=== PATIENT | female | born 1985 | race Caucasian/White ===

== ENCOUNTER → 2019-05-16 | Outpatient (CLI) | payer BC | END | disposition home or self-care (01) | LOC: RADUSWWP 12:41 | PROVIDERS: ATTEND Family Medicine | DX: R09.89 Other specified symptoms and signs involving the circulatory and respiratory systems (principal) | CPT/HCPCS: 93922 ==

== ENCOUNTER → 2019-11-09 | Outpatient (CLI) | payer BC ==
--- NOTE | 2019-11-09 13:52 | MM ---
Reason for exam: screening (asymptomatic). Baseline mammogram. History: Patient is nulliparous. Family history of breast cancer in paternal aunt. Physical Findings: Nurse did not find any significant physical abnormalities on exam. MG 3D Screening Mammo W/Cad Bilateral CC and MLO view(s) were taken. There are scattered fibroglandular densities. 7mm left upper outer quadrant nodularity has a somewhat reniform shape on 3D images. An intramammary lymph node is suspected. 6 month follow up mammogram recommended. Otherwise, no discrete abnormality. These results were verbally communicated with the patient and result sheet given to the patient on 11/09/19. ASSESSMENT: Probably benign, BI-RAD 3 RECOMMENDATION: Follow-up diagnostic mammogram of the left breast in 6 months.
== END | disposition home or self-care (01) ==
LOC: RADMAMWWP 12:30
PROVIDERS: ATTEND Obstetrics & Gynecology
DX: Z12.31 Encounter for screening mammogram for malignant neoplasm of breast (principal)
CPT/HCPCS: 77063; 77067

== ENCOUNTER → 2020-06-10 | Outpatient (CLI) | payer BC ==
--- NOTE | 2020-06-16 14:53 | MM ---
Reason for exam: follow-up at short interval from prior study. Last mammogram was performed 7 months ago. History: Patient is nulliparous. Family history of breast cancer in paternal aunt at age 40. Took hormonal contraceptives beginning at age 16. Physical Findings: Nurse did not find any significant physical abnormalities on exam. MG 3D Diag Mammo W/Cad LT CC and MLO view(s) were taken of the left breast. Prior study comparison: November 09, 2019, bilateral MG 3d screening mammo w/cad. There are scattered fibroglandular densities. Small upper outer quadrant left breast nodule 5mm. Ultrasound recommended. These results were verbally communicated with the patient and result sheet given to the patient on 06/10/20. ASSESSMENT: Incomplete: need additional imaging evaluation, BI-RAD 0 RECOMMENDATION: Ultrasound of the left breast.
--- NOTE | 2020-06-16 14:54 | USB ---
Reason for exam: additional evaluation requested from abnormal screening. History: Patient is nulliparous. Family history of breast cancer in paternal aunt at age 40. Took hormonal contraceptives beginning at age 16. US Breast Limited LT Left limited breast ultrasound including focal area of concern, retroareolar and axilla demonstrates no cystic or solid lesion seen. These results were verbally communicated with the patient and result sheet given to the patient on 06/10/20. ASSESSMENT: Probably benign, BI-RAD 3 RECOMMENDATION: Follow-up diagnostic mammogram of both breasts in 6 months. Back on schedule for November 2020.
== END | disposition home or self-care (01) ==
LOC: RADMAMWWP 14:14
PROVIDERS: ATTEND Obstetrics & Gynecology
DX: R92.8 Other abnormal and inconclusive findings on diagnostic imaging of breast (principal)
CPT/HCPCS: 77061; 77065

== ENCOUNTER → 2021-04-16 | Outpatient (CLI) | payer BC ==
--- NOTE | 2021-04-16 12:18 | MM ---
Reason for exam: additional evaluation requested from prior study. Last mammogram was performed 10 months ago. History: Patient is nulliparous. Family history of breast cancer in paternal aunt at age 40. Took hormonal contraceptives beginning at age 16. Physical Findings: Nurse did not find any significant physical abnormalities on exam. MG 3D Diag Mammo W/Cad KEYSHA Bilateral CC and MLO view(s) were taken. Spot compression CC view(s) were taken of the right breast. Prior study comparison: June 10, 2020, left breast MG 3d diag mammo w/cad LT. November 09, 2019, bilateral MG 3d screening mammo w/cad. There are scattered fibroglandular densities. Finding: There is an intermediate concern, suspicious high density, spiculated oval mass in the subareolar position of the right breast. Disperses on compression. New finding since June 10, 2020 and November 09, 2019. These results were verbally communicated with the patient and result sheet given to the patient on 04/16/21. ASSESSMENT: Incomplete: need additional imaging evaluation, BI-RAD 0 RECOMMENDATION: Ultrasound of the right breast.
--- NOTE | 2021-04-16 12:19 | USB ---
Reason for exam: additional evaluation requested from abnormal screening. History: Patient is nulliparous. Family history of breast cancer in paternal aunt at age 40. Took hormonal contraceptives beginning at age 16. US Breast Limited RT Right limited breast ultrasound including focal area of concern, retroareolar and axilla demonstrates no cystic or solid lesion seen. These results were verbally communicated with the patient and result sheet given to the patient on 04/16/21. ASSESSMENT: Probably benign, BI-RAD 3 RECOMMENDATION: Follow-up diagnostic mammogram of the right breast in 6 months.
== END | disposition home or self-care (01) ==
LOC: RADMAMWWP 10:41
PROVIDERS: ATTEND Obstetrics & Gynecology
DX: N64.89 Other specified disorders of breast (principal); Z80.3 Family history of malignant neoplasm of breast
CPT/HCPCS: 77062; 77066

== ENCOUNTER 2021-12-30 07:32 | Observation (INO) | payer BC ==
[2021-12-30 08:12] LABS: Basophils # (A) 0.1 k/uL (0-0.2); Basophils % (A) 0 %; Eosinophils % (A) 0 %; HCT 42.5 % (34.0-46.0); HGB 14.2 gm/dL (11.4-16.0); Lymphocytes # (A) 1.5 k/uL (1.0-4.8); Lymphocytes % (A) 9 %; MCH 30.7 pg (25.0-35.0); MCHC 33.4 g/dL (31.0-37.0); Mean Platelet Volume 7.1; Monocytes # (A) 0.5 k/uL (0-1.0); Monocytes % (A) 3 %; Neutrophils # (A) 15.2 k/uL (1.3-7.7); Neutrophils % (A) 87 %; Platelet Count 285 k/uL (150-450); RBC 4.62 m/uL (3.80-5.40); RDW 12.6 % (11.5-15.5); WBC 17.4 k/uL (3.8-10.6)
[2021-12-30 08:15] LABS: ALT 25 U/L (4-34); AST 26 U/L (14-36); African American GFR (CKD) >90 (>60 ml/min/1.73 sqM); Albumin 4.2 g/dL (3.5-5.0); Alkaline Phosphatase 83 U/L (38-126); Amylase 57 U/L (30-110); Anion Gap 6 mmol/L; Blood Urea Nitrogen 15 mg/dL (7-17); Calcium 9.5 mg/dL (8.4-10.2); Carbon Dioxide 24 mmol/L (22-30); Chloride 104 mmol/L (98-107); Glucose 133 mg/dL (74-99); Lipase 85 U/L (23-300); Non-African American GFR(CKD) >90 (>60 ml/min/1.73 sqM); Potassium 4.3 mmol/L (3.5-5.1); Sodium 134 mmol/L (137-145); Total Bilirubin 0.6 mg/dL (0.2-1.3); Total Protein 7.1 g/dL (6.3-8.2)
[2021-12-30 08:38] LABS: Appearance,Urine Clear (Clear); Bilirubin,Urine Negative (Negative); Blood,Urine Small (Negative); Color,Urine Yellow; Glucose,Urine (UA) Negative (Negative); Ketones,Urine Negative (Negative); Leukocyte Esterase,Urine Negative (Negative); Mucus,Urine Rare /hpf; Nitrite,Urine Negative (Negative); Protein,Urine Negative (Negative); RBC,Urine 3 /hpf (0-5); Specific Gravity,Urine 1.021 (1.001-1.035); Squamous Epithelial Cell,Urine 1 /hpf (0-4); Urobilinogen,Urine <2.0 mg/dL (<2.0); WBC,Urine 1 /hpf (0-5)
[2021-12-30] MEDS ORDERED: ONDANSETRON 4 MG/2 ML VIAL IVP STA (09:04)
[2021-12-30] MEDS ORDERED: SODIUM CHLORIDE 0.9% 1,000 ML IV STA ×2 (09:04→10:10)
[2021-12-30] MEDS ORDERED: MORPHINE SULFATE 4 MG/ML SYRINGE IVP STA (09:04)
[2021-12-30] MEDS ORDERED: diphenhydrAMINE 50 MG/ML 1 ML VIAL IVP STA (09:04)
--- NOTE | 2021-12-30 09:08 | XR ---
EXAMINATION TYPE: XR KUB DATE OF EXAM: 12/30/2021 COMPARISON: None INDICATION: Abdomen pain right lower quadrant pain TECHNIQUE: Single view abdomen FINDINGS: There is a normal bowel gas pattern. Small amount of fecal debris is in the region of the cecum. No m ass effect is evident. No suspicious air-fluid levels or differential air-fluid levels are present. N o free air is evident. Psoas margins are normal. No organomegaly is present. IMPRESSION: 1. Unremarkable Abdomen
--- NOTE | 2021-12-30 10:21 | CT ---
EXAMINATION TYPE: CT abdomen pelvis w con DATE OF EXAM: 12/30/2021 COMPARISON: No previous CT scan is available for comparison HISTORY: Right lower quadrant pain. CT DLP: 1667.3 mGycm Automated exposure control for dose reduction was used. TECHNIQUE: Helical acquisition of images was performed from the lung bases through the pelvis. CONTRAST: Performed without Oral Contrast and with IV Contrast, patient injected with 100 mL of Isovue 300. FINDINGS: Dilated appendix measuring up to 13 mm with hyperenhancing wall, surrounding fat stranding, minimal r eactive fluid and adjacent peritoneal reflection thickening, consistent with acute appendicitis. No d efinite abscess formation or signs of perforation. Unremarkable nondistended stomach, duodenum and sm all bowel. Questionable scattered uncomplicated colonic diverticulosis. Gross unremarkable remainder of the colon. Unremarkable liver, gallbladder, spleen, pancreas, adrenals, kidneys and abdominal aorta. The urinary bladder is not distended. No gross uterine mass. Bilateral ovarian cysts/follicles measuring up to 4 .2 cm on the right side and 2.8 cm and the left side, possibly representing follicles/follicular cyst . This is suboptimally assessed by this CT scan. Recommend follow up by ultrasound in 6 weeks. No suspicious lymphadenopathy or sizable ascites. Minimal fluid is seen in the pelvis with suspected pelvic adhesions. Endometriosis cannot be excluded. Unremarkable lung bases. 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 No aggressive bone lesion. IMPRESSION: 1. Acute appendicitis without signs of perforation or abscess formation. Recommend urgent surgical co nsultation. 2. Right ovarian cyst measuring up to 4.2 cm, possibly representing a follicular cyst. It is suboptim ally assessed, recommend further ultrasound assessment in 6 weeks. Other incidental findings as descr ibed above. Findings were discussed with the referring ER physician at 10:07 AM on 12/30/2021.
[2021-12-30] MEDS ORDERED: MORPHINE SULFATE 4 MG/ML SYRINGE IV PRN (10:28)
[2021-12-30] MEDS ORDERED: NALOXONE 0.4 MG/ML 1 ML VIAL IV PRN (10:28)
[2021-12-30] MEDS ORDERED: ONDANSETRON 4 MG/2 ML VIAL IVP PRN (10:28)
--- NOTE | 2021-12-30 10:31 | ED ---
General Adult HPI - General Chief complaint: Abdominal Pain Stated complaint: right side pain Time Seen by Provider: 12/30/21 08:30 Source: patient, RN notes reviewed, old records reviewed Mode of arrival: ambulatory Limitations: no limitations - History of Present Illness Initial comments: Patient is a 36-year-old female with past medical history remarkable for nothing who presents emergency Department complaining of acute onset of right-sided abdominal pain that started at 2 AM this morning. She scabs the pain is sharp and achy that does somewhat radiate around her right flank. It is tender to touch. Endorses nausea, but no episodes of emesis. Denies dysuria or hematuria. Does endorse episodes of diarrhea this morning as well. Presents e mergency Department because the pain was so severe. Denies any history of abdominal surgeries. States the pain has been constant and has not been coming and going. States she is currently on her period and does not believe she is . Patient was evaluated when she was placed in a room. Work up was initially started in triage by nursing. - Related Data Home Medications Medication Instructions Recorded Confirmed Gabapentin [Neurontin] 300 mg PO DAILY 12/30/21 12/30/21 SUMAtriptan SUCCINATE [Imitrex] 100 mg PO DAILY PRN 12/30/21 12/30/21 Venlafaxine HCl [Effexor XR] 75 mg PO DAILY 12/30/21 12/30/21 Allergies Allergy/AdvReac Type Severity Reaction Status Date / Time No Known Allergies Allergy Verified 12/30/21 10:26 Review of Systems ROS Statement: Those systems with pertinent positive or pertinent negative responses have been documented in the HPI. Review of Systems: CONST: Denies fever EYES: Denies blurry vision ENT: Denies nasal congestion C/V: Denies Chest pain RESP: Denies shortness of breath GI: Endorses abdominal pain : Denies dysuria SKIN: Denies rash. MSK: Denies joint pain. NEURO: Denies headache ROS Other: All systems not noted in ROS Statement are negative. Past Medical History Past Medical History: No Reported History History of Any Multi-Drug Resistant Organisms: None Reported Past Surgical History: No Surgical Hx Reported Past Psychological History: No Psychological Hx Reported Smoking Status: Never smoker Past Alcohol Use History: Rare Past Drug Use History: None Reported General Exam - General Exam Comments Initial Comments: General: Appears in mild to moderate distress secondary to abdominal pain. HEAD: Normal with no signs of head trauma. EYES: PERRLA, EOMI, conjunctiva normal, no discharge. ENT: Hearing grossly intact, normal oropharynx. RESPIRATORY: Clear breath sounds bilaterally. No wheezes, rales, or rhonchi. C/V: Regular rate and rhythm. S1 and S2 auscultated, no edema, peripheral pulses 2+ and intact throughout ABD: Abdomen is soft, nondistended. Patient is tender to palpation in the right lower quadrant. No guarding. No rebound tenderness. No peritoneal signs. No CVA tenderness to percussion. McBurney's point positive. Rovsing sign negative. EXT: Normal range of motion, no obvious deformity SKIN: No rashes or lesions observed on exposed skin. NEURO: Alert and oriented 4. Limitations: no limitations Course Vital Signs 12/30/21 07:33 Temperature 98.0 F Pulse Rate 94 Respiratory 18 Rate Blood Pressure 111/53 O2 Sat by Pulse 98 Oximetry Medical Decision Making - Medical Decision Making Based on the patient's presentation and physical exam, it appears that the patient is having acute onset of abdominal pain. I'm concerned for acute intra- abdominal process she cannot rule out kidney stones versus appendicitis. I did discuss this with the patient. Abdominal laboratory studies were already drawn in triage were remarkable for a negative test. Patient does have a leukocytosis of 17.4. Urinalysis is positive for a small amount of blood but otherwise unremarkable. Abdominal x-ray was ordered by triage and also revealed no acute intra-abdominal process. I discussed with her my concern for possible appendicitis and I would like to obtain a CT abdomen and pelvis with contrast. She was in agreement with this plan. Patient will be symptomatically treated with 1 L fluid bolus as well as a GI cocktail consisting of IV morphine, Benadryl, Zofran. Patient was in agreement with this plan. CT on pelvis revealed an acute uncomplicated appendicitis. There is also a right-sided ovarian cyst with recommended follow-up ultrasound. I did discuss the patient with findings on his CT imaging. Abdomen like to admit her to the hospital for potential surgery. Patient was started on cefoxitin. Blood cultures were obtained and sent. Patient was in agreement this plan. I contacted surgery on-call, Dr. Oliva who is in agreement this plan. Patient will be made nothing by mouth. Patient was therefore admitted in serious condition. - Lab Data Result diagrams: 12/30/21 07:48 12/30/21 07:48 Lab Results 12/30/21 12/30/21 12/30/21 Range/Units 07:48 07:48 07:48 WBC 17.4 H (3.8-10.6) k/uL RBC 4.62 (3.80-5.40) m/uL Hgb 14.2 (11.4-16.0) gm/dL Hct 42.5 (34.0-46.0) % MCV 92.0 (80.0-100.0) fL MCH 30.7 (25.0-35.0) pg MCHC 33.4 (31.0-37.0) g/dL RDW 12.6 (11.5-15.5) % Plt Count 285 (150-450) k/uL MPV 7.1 Neutrophils % 87 % Lymphocytes % 9 % Monocytes % 3 % Eosinophils % 0 % Basophils % 0 % Neutrophils # 15.2 H (1.3-7.7) k/uL Lymphocytes # 1.5 (1.0-4.8) k/uL Monocytes # 0.5 (0-1.0) k/uL Eosinophils # 0.0 (0-0.7) k/uL Basophils # 0.1 (0-0.2) k/uL Sodium 134 L (137-145) mmol/L Potassium 4.3 (3.5-5.1) mmol/L Chloride 104 (98-107) mmol/L Carbon Dioxide 24 (22-30) mmol/L Anion Gap 6 mmol/L BUN 15 (7-17) mg/dL Creatinine 0.68 (0.52-1.04) mg/dL Est GFR (CKD-EPI)AfAm >90 (>60 ml/min/1.73 sqM) Est GFR (CKD-EPI)NonAf >90 (>60 ml/min/1.73 sqM) Glucose 133 H (74-99) mg/dL Calcium 9.5 (8.4-10.2) mg/dL Total Bilirubin 0.6 (0.2-1.3) mg/dL AST 26 (14-36) U/L ALT 25 (4-34) U/L Alkaline Phosphatase 83 (38-126) U/L Total Protein 7.1 (6.3-8.2) g/dL Albumin 4.2 (3.5-5.0) g/dL Amylase 57 (30-110) U/L Lipase 85 (23-300) U/L HCG, Qual Not Detected Urine Color Urine Appearance (Clear) Urine pH (5.0-8.0) Ur Specific [place] (1.001-1.035) Urine Protein (Negative) Urine Glucose (UA) (Negative) Urine Ketones (Negative) Urine Blood (Negative) Urine Nitrite (Negative) Urine Bilirubin (Negative) Urine Urobilinogen (<2.0) mg/dL Ur Leukocyte Esterase (Negative) Urine RBC (0-5) /hpf Urine WBC (0-5) /hpf Ur Squamous Epith Cells (0-4) /hpf Urine Mucus (None) /hpf 12/30/21 Range/Units 08:22 WBC (3.8-10.6) k/uL RBC (3.80-5.40) m/uL Hgb (11.4-16.0) gm/dL Hct (34.0-46.0) % MCV (80.0-100.0) fL MCH (25.0-35.0) pg MCHC (31.0-37.0) g/dL RDW (11.5-15.5) % Plt Count (150-450) k/uL MPV Neutrophils % % Lymphocytes % % Monocytes % % Eosinophils % % Basophils % % Neutrophils # (1.3-7.7) k/uL Lymphocytes # (1.0-4.8) k/uL Monocytes # (0-1.0) k/uL Eosinophils # (0-0.7) k/uL Basophils # (0-0.2) k/uL Sodium (137-145) mmol/L Potassium (3.5-5.1) mmol/L Chloride (98-107) mmol/L Carbon Dioxide (22-30) mmol/L Anion Gap mmol/L BUN (7-17) mg/dL Creatinine (0.52-1.04) mg/dL Est GFR (CKD-EPI)AfAm (>60 ml/min/1.73 sqM) Est GFR (CKD-EPI)NonAf (>60 ml/min/1.73 sqM) Glucose (74-99) mg/dL Calcium (8.4-10.2) mg/dL Total Bilirubin (0.2-1.3) mg/dL AST (14-36) U/L ALT (4-34) U/L Alkaline Phosphatase (38-126) U/L Total Protein (6.3-8.2) g/dL Albumin (3.5-5.0) g/dL Amylase (30-110) U/L Lipase (23-300) U/L HCG, Qual Urine Color Yellow Urine Appearance Clear (Clear) Urine pH 7.0 (5.0-8.0) Ur Specific [place] 1.021 (1.001-1.035) Urine Protein Negative (Negative) Urine Glucose (UA) Negative (Negative) Urine Ketones Negative (Negative) Urine Blood Small H (Negative) Urine Nitrite Negative (Negative) Urine Bilirubin Negative (Negative) Urine Urobilinogen <2.0 (<2.0) mg/dL Ur Leukocyte Esterase Negative (Negative) Urine RBC 3 (0-5) /hpf Urine WBC 1 (0-5) /hpf Ur Squamous Epith Cells 1 (0-4) /hpf Urine Mucus Rare H (None) /hpf Disposition Clinical Impression: Acute appendicitis Disposition: ADMITTED IP TO THIS [facility] Condition: Serious Referrals: Nestor Meza MD [Primary Care Provider] - 1-2 days
--- NOTE | 2021-12-30 13:12 | P.GSHP ---
History of Present Illness H&P Date: 12/30/21 CHIEF COMPLAINT: Abdominal pain HISTORY OF PRESENT ILLNESS: This is a 36-year-old female who presented to the emergency room with complaints of right-sided abdominal pain that started suddenly at 2 AM this morning. Patient reports that it woke her up out of sleep. She reports having cold sweats and episode of diarrhea. No blood in the stools. Denies any fevers. And she's been having nausea. She is more tender in the right lower quadrant. White count was elevated on admission. She had a computed tomography scan of the abdomen and pelvis with concerns of appendicitis. Past surgical history includes D&C. PAST MEDICAL HISTORY: See list. PAST SURGICAL HISTORY: See list. MEDICATIONS: See list. ALLERGIES: See list. SOCIAL HISTORY: No illicit drug use. REVIEW OF SYSTEMS: CONSTITUTIONAL: Denies fever or chills. HEENT: Denies blurred vision, vision changes, or eye pain. Denies hemoptysis ENDOCRINE: Denies heat or cold intolerance. CARDIOVASCULAR: Denies chest pain or pressure. RESPIRATORY: No shortness of breath. GASTROINTESTINAL: Please refer to HPI NEURO: Denies history of seizures. PSYCH: No depression or suicidal ideation HEMATOLOGIC: Denies bleeding disorders. LYMPHATIC: The patient denies any lumps and bumps around the neck. GENITOURINARY: Denies any blood in urine or increased urinary frequency. MUSCULOSKELETAL: Denies myalgias. Denies joint swelling. Denies decreased range of motion beyond patients baseline. SKIN: Denies pruitis. Denies rash. PHYSICAL EXAM: VITAL SIGNS: Reviewed GENERAL: Well-developed in no acute distress. HEENT: No sclera icterus. Extraocular movements grossly intact. Moist buccal mucosa. Head is atraumatic, normocephalic. Hears conversational speech. No nasal drainage. NECK: Supple without lymphadenopathy. CHEST: Non-labored respirations and equal bilateral excursions. CARDIOVASCULAR: Palpable 2+ radial pulses. ABDOMEN: Soft. Nondistended. Tenderness with palpation in the right lower quadrant and right mid abdomen MUSCULOSKELETAL: No clubbing or cyanosis. NEUROLOGIC: No focal or lateralizing signs. Cranial nerves II through XII grossly intact. PSYCH: Appropriate affect. Alert and oriented to person, place and time. SKIN: Well perfused. Good skin turgor. LABORATORY DATA: WBC is 17.4 hemoglobin 14.2 platelets 285 Sodium is 134 potassium 4.3 BUN 15 creatinine 0.68 LFTs normal Lipase normal HCG not detected COVID-19 not detected IMAGING: Computed tomography scan abdomen and pelvis acute appendicitis without signs of perforation or abscess formation. Right ovarian cyst measuring up to 4.2 cm, possibly representing a follicular cyst. It is suboptimally assessed, recommend further ultrasound assessment 6 weeks. ASSESSMENT: 1. Acute appendicitis 2. Leukocytosis 3. Right ovarian cyst measuring 4.2 cm possibly a follicular cyst PLAN: -Scheduled for robotic appendectomy today, 12/30/[address] Oliva -Keep patient nothing by mouth -Continue IV antibiotics -Continue IV fluids -Continue pain medication and antiemetics as needed Physician Sorority Supervisor note has been reviewed by physician. Signing provider agrees with the documented findings, assessment, and plan of care. Past Medical History Past Medical History: No Reported History Additional Past Medical History / Comment(s): neuropathy History of Any Multi-Drug Resistant Organisms: None Reported Past Surgical History: No Surgical Hx Reported Past Anesthesia/Blood Transfusion Reactions: No Reported Reaction Past Psychological History: Anxiety Smoking Status: Former smoker Past Alcohol Use History: Rare Past Drug Use History: None Reported Medications and Allergies Home Medications Medication Instructions Recorded Confirmed Type Gabapentin [Neurontin] 300 mg PO DAILY 12/30/21 12/30/21 History SUMAtriptan SUCCINATE [Imitrex] 100 mg PO DAILY PRN 12/30/21 12/30/21 History Venlafaxine HCl [Effexor XR] 75 mg PO DAILY 12/30/21 12/30/21 History Allergies Allergy/AdvReac Type Severity Reaction Status Date / Time No Known Allergies Allergy Verified 12/30/21 10:26 Surgical - Exam Vital Signs Temp Pulse Resp BP Pulse Ox 98.0 F 94 18 111/53 98 12/30/21 07:33 12/30/21 07:33 12/30/21 07:33 12/30/21 07:33 12/30/21 07:33 Results - Labs 12/30/21 07:48 12/30/21 07:48 Abnormal Lab Results - Last 24 Hours (Table) 12/30/21 12/30/21 12/30/21 Range/Units 07:48 07:48 08:22 WBC 17.4 H (3.8-10.6) k/uL Neutrophils # 15.2 H (1.3-7.7) k/uL Sodium 134 L (137-145) mmol/L Glucose 133 H (74-99) mg/dL Urine Blood Small H (Negative) Urine Mucus Rare H (None) /hpf Diabetes panel 12/30/21 Range/Units 07:48 Sodium 134 L (137-145) mmol/L Potassium 4.3 (3.5-5.1) mmol/L Chloride 104 (98-107) mmol/L Carbon Dioxide 24 (22-30) mmol/L BUN 15 (7-17) mg/dL Creatinine 0.68 (0.52-1.04) mg/dL Glucose 133 H (74-99) mg/dL Calcium 9.5 (8.4-10.2) mg/dL AST 26 (14-36) U/L ALT 25 (4-34) U/L Alkaline Phosphatase 83 (38-126) U/L Total Protein 7.1 (6.3-8.2) g/dL Albumin 4.2 (3.5-5.0) g/dL Calcium panel 12/30/21 Range/Units 07:48 Calcium 9.5 (8.4-10.2) mg/dL Albumin 4.2 (3.5-5.0) g/dL Pituitary panel 12/30/21 Range/Units 07:48 Sodium 134 L (137-145) mmol/L Potassium 4.3 (3.5-5.1) mmol/L Chloride 104 (98-107) mmol/L Carbon Dioxide 24 (22-30) mmol/L BUN 15 (7-17) mg/dL Creatinine 0.68 (0.52-1.04) mg/dL Glucose 133 H (74-99) mg/dL Calcium 9.5 (8.4-10.2) mg/dL Adrenal panel 12/30/21 Range/Units 07:48 Sodium 134 L (137-145) mmol/L Potassium 4.3 (3.5-5.1) mmol/L Chloride 104 (98-107) mmol/L Carbon Dioxide 24 (22-30) mmol/L BUN 15 (7-17) mg/dL Creatinine 0.68 (0.52-1.04) mg/dL Glucose 133 H (74-99) mg/dL Calcium 9.5 (8.4-10.2) mg/dL Total Bilirubin 0.6 (0.2-1.3) mg/dL AST 26 (14-36) U/L ALT 25 (4-34) U/L Alkaline Phosphatase 83 (38-126) U/L Total Protein 7.1 (6.3-8.2) g/dL Albumin 4.2 (3.5-5.0) g/dL
--- NOTE | 2021-12-30 15:22 | P.PN ---
Progress Note - Text Progress Note Date: 12/30/21 CT of the abdomen and pelvis reviewed demonstrating inflammatory changes consistent with appendicitis without rupture. Robotic appendectomy reviewed described.
[2021-12-30] MEDS ORDERED: HEPARIN SODIUM,PORCINE/PF 5,000 UNIT/0.5 ML SYRINGE SQ ONE (15:32)
[2021-12-30] MEDS ORDERED: DEXAMETHASONE SOD PHOSPHATE 4 MG/ML 1 ML VIAL IVP ONE (15:47)
[2021-12-30] MEDS ORDERED: LACTATED RINGERS 1,000 ML IV ONE ×2 (15:47→17:19)
[2021-12-30] MEDS ORDERED: ONDANSETRON 4 MG/2 ML VIAL IVP ONE (15:48)
[2021-12-30] MEDS ORDERED: HEPARIN SODIUM,PORCINE/PF 5,000 UNIT/0.5 ML SYRINGE SQ PRN (16:02)
[2021-12-30] MEDS ORDERED: SCOPOLAMINE 1.5MG/72HR PATCH TRANSDERM ONE (16:11)
[2021-12-30] MEDS ORDERED: NEOSTIGMINE 1 MG/ML 10 ML VIAL ONE (16:21)
[2021-12-30] MEDS ORDERED: MIDAZOLAM 2 MG/2 ML VIAL ONE (16:21)
[2021-12-30] MEDS ORDERED: KETOROLAC 15 MG/ML 1 ML VIAL ONE (16:21)
[2021-12-30] MEDS ORDERED: LIDOCAINE 1% INJ 10MG/ML (20 ML MDV) ONE (16:21)
[2021-12-30] MEDS ORDERED: PROPOFOL 10 MG/ML 20 ML VIAL IV ONE (16:21)
[2021-12-30] MEDS ORDERED: GLYCOPYRROLATE 0.2 MG/ML 2 ML VIAL ONE (16:21)
[2021-12-30] MEDS ORDERED: ePHEDrine 50 MG/ML 1 ML VIAL ONE (16:21)
[2021-12-30] MEDS ORDERED: SUCCINYLCHOLINE CHLORIDE 100 MG/5 ML SYR IV ONE (16:21)
[2021-12-30] MEDS ORDERED: ROCURONIUM 10 MG/ML (5 ML VIAL) IV ONE (16:21)
[2021-12-30] MEDS ORDERED: fentaNYL (PF) 50 MCG/ML 2 ML AMP ONE (16:21)
[2021-12-30] MEDS ORDERED: BUPIVACAIN-EPI 0.25%-1:200,000 30 ML VIAL SQ ONE (16:47)
[2021-12-30] MEDS ORDERED: SUMAtriptan succinate 50 MG TAB PO PRN (17:48)
--- NOTE | 2021-12-30 17:53 | P.OP ---
Date of Procedure: 12/30/21 Description of Procedure: SURGEON: SHANNON BERGERON MD Preoperative Diagnosis: 1. Acute appendicitis 2. Morbid obesity due to excess calories, BMI 38.1 3. Neuropathy 4. Generalized anxiety disorder 5. Depressive disorder Postoperative Diagnosis: 1. Acute appendicitis with periappendicitis, without rupture 2. Morbid obesity due to excess calories, BMI 38.1 3. Neuropathy 4. Generalized anxiety disorder 5. Depressive disorder 6. Peritoneal adhesion, mid Procedure(s) Performed: 1. Robotic-assisted daVinci Xi laparoscopic appendectomy 2. Robotic-assisted daVinci Xi laparoscopic lysis of adhesions Anesthesia: GETA, local Estimated Blood Loss (ml): 5 Pathology: other (appendix) Condition: stable Disposition: floor Operative Findings: 1. Acute appendicitis without rupture with periappendicitis 2. Terminal ileum unremarkable 3. Cecum unremarkable 4. Omental adhesion to abdominal wall umbilicus lysed INDICATIONS: The patient is a 36-year-old male who presents with acute appendicitis. Benefits and risks, including infection, open surgery, and bleeding for additional surgery was discussed at length. Informed consent was obtained. All questions of the patient and family were answered. DESCRIPTION: The patient was transferred to the operating room and placed in supine position. The patient had previously voided. The abdomen was then prepped and draped in standard sterile fashion as Ioban was placed along the abdomen to minimize any contamination of skin floor. After a timeout protocol was performed, attention was then brought to the left upper quadrant whereby a 0 degree 5 mm laparoscopic trocar entry was performed. The abdominal cavity was entered and insufflated to 12 mmHg pressure, which was tolerated well. Diagnostic laparoscopy demonstrated no injury to bowel, viscera or mesentery. Next a robotic 8-mm trocar was placed along the left lower quadrant, 10-cm lateral to the midline. A 12 mm port was placed along the left upper quadrant and another 8-mm port left lateral abdominal wall. Ports were placed 8 cm apart from each other including 15-20 cm away from the target anatomy of the right pelvis. The robotic da Dahlia XI system was primed and docked from the left side of the patient. Using atraumatic graspers and vessel sealer, the robotic system was docked and primed as described. Instruments were interchanged by the therapy assistant including graspers, robotic stapler and vessel sealer. Next, attention was brought to identify the cecum. A systematic view within the abdominal cavity was started with the small bowel which was unremarkable. The base of the cecum was unremarkable. No inguinal hernias were identified. Omental adhesion to the abdominal wall at the umbilicus was lysed. The body of the appendix was dilated with moderate periappendicitis. No perforation was identified. The appendix was dissected free from its surrounding tissues. Blue 45 mm robotic staple loads were fired along the base of the appendix. Cautery was used along the staple line for hemostasis. Hemostasis was checked prior to undocking the robot. The robot was undocked. I re-scrubbed into the case. The specimen was removed from the abdominal cavity with an Endo Catch bag through the 12 mm trocar at the left upper quadrant. The 12 mm port site fascial defect was less than 8 mm. All instruments and pneumoperitoneum were evacuated from the abdominal cavity. Local anesthetic was infiltrated to all wounds for postop analgesia. All incisions were also cleansed with diluted hydrogen peroxide. The incisions were closed with 4-0 Monocryl. Exofin glue was applied to the rest of the skin incisions. The patient had tolerated the procedure well. The patient was extubated successfully. The patient was transferred to the postanesthesia care unit in stable condition.
[2021-12-30] MEDS: KETOROLAC 30 MG/ML 1 ML VIAL IVP SCH (19:52)
[2021-12-30] MEDS: METOCLOPRAMIDE 5 MG/ML 2 ML VIAL IVP SCH (23:02)
[2021-12-30] MEDS: ACETAMINOPHEN TAB 500 MG TAB PO SCH (23:02)
[2021-12-31] MEDS: METOCLOPRAMIDE 5 MG/ML 2 ML VIAL IVP SCH ×3 (00:48→12:36)
[2021-12-31] MEDS: KETOROLAC 30 MG/ML 1 ML VIAL IVP SCH ×3 (00:49→12:25)
[2021-12-31] MEDS: ACETAMINOPHEN TAB 500 MG TAB PO SCH ×3 (00:54→12:36)
[2021-12-31 07:25] VITALS: BP 110/63; PULSE 70; RESP 18; TEMP 97.9
[2021-12-31] MEDS ORDERED: GABAPENTIN 300 MG CAP PO SCH (09:00)
[2021-12-31] MEDS ORDERED: ENOXAPARIN 40 MG/0.4 ML SYRINGE SQ SCH (09:00)
[2021-12-31 11:06] LABS: Basophils # (A) 0.01 X 10*3/uL (0.00-0.10); Basophils % (A) 0.1 %; Eosinophils # (A) 0.01 X 10*3/uL (0.04-0.35); Eosinophils % (A) 0.1 %; HCT 39.9 % (37.2-46.3); HGB 12.7 g/dL (12.0-15.0); Immature Grans, Automated 0.2 %; Lymphocytes # (A) 1.35 X 10*3/uL (0.90-5.00); Lymphocytes % (A) 10.7 %; MCHC 31.8 g/dL (32.0-37.0); MCV 94.1 fL (80.0-97.0); Mean Platelet Volume 9.9 fL (9.5-12.2); Monocytes # (A) 0.46 X 10*3/uL (0.20-1.00); Monocytes % (A) 3.7 %; NRBC Per 100 WBC 0 /100 WBCS (0.0-0.0); Neutrophils # (A) 10.74 X 10*3/uL (1.80-7.70); Neutrophils % (A) 85.2 %; Platelet Count 265 X 10*3/uL (140-440); RBC 4.24 X 10*6/uL (4.10-5.20); RDW 11.9 % (11.5-14.5)
[2021-12-31 11:44] LABS: Calcium 8.7 mg/dL (8.7-10.3); Carbon Dioxide 23.2 mmol/L (20.0-27.5); Non-African American GFR(CKD) 101.8 (60.0-200.0); Potassium 4.1 mmol/L (3.5-5.5)
--- NOTE | 2021-12-31 12:02 | P.DS ---
Providers Date of admission: 12/30/21 10:46 Expected date of discharge: 12/31/21 Attending physician: Maday Oliva Consults: 12/30/21 16:03 Consult Physician Routine Consulting Provider: [facility] Consult Reason/Comments: [facility] Do you want consulting provider notified?: Yes Primary care physician: Jose Manuel Meza - Discharge Diagnosis(es) (1) Acute appendicitis Current Visit: Yes Status: Acute Hospital Course: Postoperative Diagnosis: 1. Acute appendicitis with periappendicitis, without rupture 2. Morbid obesity due to excess calories, BMI 38.1 3. Neuropathy 4. Generalized anxiety disorder 5. Depressive disorder 6. Peritoneal adhesion, mid COURSE: The patient is a 36-year-old female presented with right lower quadrant abdominal pain. Clinical findings consistent acute appendicitis. She underwent appendectomy uneventfully. Postoperatively, right lower quadrant abdominal pain improved. She had been tolerating diet. Discharge instructions reviewed. Follow-up one week described. Procedures: Procedure(s) Performed: 1. Robotic-assisted daVinci Xi laparoscopic appendectomy 2. Robotic-assisted daVinci Xi laparoscopic lysis of adhesions Anesthesia: GETA, local Estimated Blood Loss (ml): 5 Pathology: other (appendix) Condition: stable Disposition: floor Operative Findings: 1. Acute appendicitis without rupture with periappendicitis 2. Terminal ileum unremarkable 3. Cecum unremarkable 4. Omental adhesion to abdominal wall umbilicus lysed Patient Condition at Discharge: Stable Plan - Discharge Summary New Discharge Prescriptions: New Ibuprofen [Motrin] 600 mg PO Q8HR PRN #30 tab PRN Reason: Pain Simethicone [Gas-X] 125 mg PO AC-TID PRN #20 capsule PRN Reason: Pain Acetaminophen Tab [Tylenol Tab] 1,000 mg PO Q6HR PRN #30 tablet PRN Reason: Pain Continue Venlafaxine HCl [Effexor XR] 75 mg PO DAILY SUMAtriptan SUCCINATE [Imitrex] 100 mg PO DAILY PRN PRN Reason: Migraine Headache Gabapentin [Neurontin] 300 mg PO DAILY Discharge Medication List Gabapentin [Neurontin] 300 mg PO DAILY 12/30/21 [History] SUMAtriptan SUCCINATE [Imitrex] 100 mg PO DAILY PRN 12/30/21 [History] Venlafaxine HCl [Effexor XR] 75 mg PO DAILY 12/30/21 [History] Acetaminophen Tab [Tylenol Tab] 1,000 mg PO Q6HR PRN #30 tablet 12/31/21 [Rx] Ibuprofen [Motrin] 600 mg PO Q8HR PRN #30 tab 12/31/21 [Rx] Simethicone [Gas-X] 125 mg PO AC-TID PRN #20 capsule 12/31/21 [Rx] Follow up Appointment(s)/Referral(s): Nestor Meza MD [Primary Care Provider] - 1-2 days Maday Oliva MD [STAFF PHYSICIAN] - 01/05/22 (Telehealth available) Patient Instructions/Handouts: *[facility] - Managing Your Pain After Surgery Without Opioids, Appendicitis (GEN), Low Fat Diet (ED) Activity/Diet/Wound Care/Special Instructions: Recommend low-fat diet for the next 2 days. No lifting over 10 pounds in 2 weeks until January 13. May shower. No bath tub soaks for two weeks until January 13 Diet as tolerated. Use Tylenol, simethicone and ibuprofen or Aleve scheduled for the next 24-48 hours for best pain relief. Use ice along incisions for today to prevent swelling. Discharge Disposition: HOME SELF-CARE
== END 2021-12-31 12:48 | disposition home or self-care (01) ==
LOC: EC 07:32 → 6NMEDSUR 10:46
PROVIDERS: ADMIT Surgery Plastic and Reconstructive Surgery; ATTEND Surgery Plastic and Reconstructive Surgery
DX: K35.80 Unspecified acute appendicitis (principal); K66.0 Peritoneal adhesions (postprocedural) (postinfection); N83.201 Unspecified ovarian cyst, right side; G62.9 Polyneuropathy, unspecified; G43.909 Migraine, unspecified, not intractable, without status migrainosus; F41.1 Generalized anxiety disorder; F32.A Depression, unspecified; E66.01 Morbid (severe) obesity due to excess calories; Z68.38 Body mass index [BMI] 38.0-38.9, adult; Z20.822 Contact with and (suspected) exposure to COVID-19; Z79.899 Other long term (current) drug therapy; Z87.891 Personal history of nicotine dependence
CPT/HCPCS: 44970; S2900; 36415; 74018; 74177; 80048; 80053; 81001; 81025; 82150; 83690; 84703; 85025; 87040; 87635; 88304; 96361; 96374; 96375; 99285

== ENCOUNTER → 2023-11-25 | Outpatient (CLI) | payer BC ==
--- NOTE | 2023-11-25 13:38 | MM ---
Reason for Exam: Additional evaluation requested from prior study. Last mammogram was performed 2 year(s) and 7 month(s) ago. Patient History: Menarche at age 11. Patient has no children. Hormonal Contraceptives, from age 16 until age 31. Paternal aunt had breast cancer, age 40. Last menstrual period: 11/23/2023 Risk Values: Chanda 5 year model risk: 0.6%. NCI Lifetime model risk: 11.1%. Tissue Density: The breast tissue is almost entirely fat. Findings: Analyzed By CAD. Small intramammary lymph node upper outer left breast is stable to slightly smaller. Otherwise, no significant change. Overall Assessment: Benign, BI-RAD 2 Management: Screening Mammogram of both breasts in 1 year. . Results were given to the patient verbally at the time of exam. Patient should continue monthly self-breast exams. A clinical breast exam by your physician is recommended on an annual basis. This exam should not preclude additional follow-up of suspicious palpable abnormalities. Note on Chanda scores and lifetime risk: 1. A Chanda score greater than 3% is considered moderate risk. If this is the case, consider specialist referral to assess eligibility for a risk reducing agent. 2. If overall lifetime risk for the development of breast cancer is 20% or higher, the patient may qualify for future screening with alternating mammogram and breast MRI. Electronically signed and approved by: Kristie Martinez M.D. Radiologist
== END | disposition home or self-care (01) ==
LOC: RADMAMWWP 13:17
PROVIDERS: ATTEND Obstetrics & Gynecology
DX: R92.313 Mammographic fatty tissue density, bilateral breasts (principal); Z80.3 Family history of malignant neoplasm of breast
CPT/HCPCS: 77062; 77066

== ENCOUNTER 2024-06-26 10:30 | Day surgery (SDC) | payer BC ==
[~2024-06-26 10:30] MED LIST: LACTATED RINGERS 1,000 ML BAG ONE; ONDANSETRON 4 MG/2 ML VIAL ONE
[2024-06-26] MEDS ORDERED: PROPOFOL 10 MG/ML 20 ML VIAL IV ONE (10:35)
--- NOTE | 2024-06-29 15:56 | PCN ---
PROCEDURE NOTE PREOPERATIVE DIAGNOSIS: Change in bowel habits. POSTOPERATIVE DIAGNOSIS: Ascending colon polyp x2. PROCEDURE: Colonoscopy with snare polypectomy. ANESTHESIA: Sedation. COMPLICATIONS: None. OPERATIVE PROCEDURE: The patient was brought and placed on the operating table in left decubitus position. The patient was sedated per Anesthesia at that time. The Olympus colonoscope was inserted into the anus and passed under direct visualization to the base of the cecum. From that point, we slowly withdrew the scope, inspecting all the surfaces carefully. There were no neoplastic, inflammatory, or polypoid lesions seen throughout the base of the cecum. In the ascending colon, 2 sessile polyps were identified, both removed using a snare with cautery technique. The remainder of the ascending, transverse, descending, sigmoid, and rectum appeared normal. There was no visible diverticulosis. There were no abnormalities to explain the patient's constipation issues. PLAN: Await the results, but we would anticipate repeat colonoscopy in 5 years if adenomatous tissue found. MMODL / IJN: [id number] /
== END 2024-06-26 11:35 ==
LOC: ORWHC2ENDO 10:30
PROVIDERS: ATTEND Surgery
DX: D12.2 Benign neoplasm of ascending colon (principal); G43.909 Migraine, unspecified, not intractable, without status migrainosus; F90.9 Attention-deficit hyperactivity disorder, unspecified type; F41.9 Anxiety disorder, unspecified; Z79.899 Other long term (current) drug therapy
CPT/HCPCS: 45385; 81025; 88305